=== PATIENT | female | born 1965 | race Caucasian/White ===

== ENCOUNTER 2018-12-18 17:52 | Emergency (ER) | payer OTHER ==
[~2018-12-18] VITALS: Ht 172.7 cm; Wt 113.4 kg
[~2018-12-18 17:52] MED LIST: DURICEF500 MG PO; MOTRIN800 MG PO; URETRON D/S TAB1 TAB PO
[2018-12-18] MEDS ORDERED: RELAFEN (18:39)
== END 2018-12-18 22:23 | disposition home or self-care (01) ==
LOC: ER 17:52
DX: M25.551 Pain in right hip (principal)